=== PATIENT | female | born 1955 | race American Indian/Alaskan Native ===

== ENCOUNTER → 2017-02-28 | Outpatient (CLI) | payer OTHER, MEDICAID ==
[~2017-02-28] MED LIST: ASPI-515 PO; DIAZ5TAB4; DIAZ5TAB4 PO; DULO60CA7 PO; GLYB5TAB3 PO; LINA5TAB PO; LORA10CA; LORA10TA3 PO; LOVASTATIN; METF10002 PO; METH-356 PO; MULT-115 PO; NABU500T PO; OXYC10TA32 PO; OXYC10TA6 PO; OXYC20TA42 PO; QUET100T4 PO; QUET25TA5 PO; [UNRECOGNIZED DRUG - REMARK]
[2017-02-28 15:12] LABS: ASPARTATE AMINO TRANSFERASE 14 U/L (15-37); BLOOD UREA NITROGEN 16 mg/dL (7-18)
[2017-02-28 15:43] LABS: HIV 1&2 ANTIBODY SCREEN Nonreactive (Nonreactive); HIV-1 p24 ANTIGEN Nonreactive (Nonreactive)
== END | disposition home or self-care (01) ==
LOC: STAR 13:49
PROVIDERS: ATTEND Orthopaedic Surgery
DX: T84.84XS Pain due to internal orthopedic prosthetic devices, implants and grafts, sequela (principal); M19.91 Primary osteoarthritis, unspecified site; R79.89 Other specified abnormal findings of blood chemistry; F32.9 Major depressive disorder, single episode, unspecified; E11.9 Type 2 diabetes mellitus without complications; E78.5 Hyperlipidemia, unspecified; I10 Essential (primary) hypertension; Z96.652 Presence of left artificial knee joint; Z79.899 Other long term (current) drug therapy; Z79.82 Long term (current) use of aspirin; Z79.01 Long term (current) use of anticoagulants
CPT/HCPCS: 36415; 80053; 83036; 85025; 85610; 85730; 86703; 87081; 87899; 93005; G0435

== ENCOUNTER 2017-03-04 07:21 | Inpatient (IN) | payer OTHER, MEDICAID ==
[~2017-03-04] VITALS: Ht 162.6 cm; Wt 94.9 kg
[2017-03-04] MEDS ORDERED: VANCOMYCIN PER PHARMACY MC STA (07:32)
[2017-03-04] MEDS ORDERED: MIDAZOLAM 1 MG/ML, 2ML ONE (07:43)
[2017-03-04] MEDS ORDERED: FENTANYL PF 250 MCG/5ML ONE (07:43)
[2017-03-04] MEDS ORDERED: VANCOMYCIN 1,500 MG in SODIUM CHLORIDE 0.9% 250 ML IV ONE (08:00)
[2017-03-04] MEDS ORDERED: BUPIVACAINE/PF-EPI 0.5% 1:200K ONE (08:26)
[2017-03-04] MEDS ORDERED: EPINEPHRINE 1 MG/ML, 1ML ONE (08:48)
[2017-03-04] MEDS ORDERED: TRANEXAMIC ACID 100 MG/ML, 10ML ONE ×4 (08:48)
[2017-03-04] MEDS ORDERED: VANCOMYCIN 1,000 MG ONE ×2 (08:48)
[2017-03-04] MEDS ORDERED: KETOROLAC 60 MG/2 ML ONE (08:48)
[2017-03-04] MEDS ORDERED: ROPIvacaine/PF 0.2%, 20 ML ONE (08:48)
[2017-03-04] MEDS ORDERED: SODIUM CHLORIDE 0.9% 50 ML ONE (08:49)
[2017-03-04] MEDS ORDERED: ACETAMINOPHEN 500 MG TABLET ONE (08:49)
[2017-03-04] MEDS ORDERED: GABAPENTIN 300 MG CAPSULE ONE (08:50)
[2017-03-04] MEDS ORDERED: LACTATED RINGERS 1,000 ML IV SCH (08:51)
[2017-03-04] MEDS ORDERED: ACETAMINOPHEN 500 MG TABLET PO ONE (09:00)
[2017-03-04] MEDS ORDERED: GABAPENTIN 300 MG CAPSULE PO SCH (09:00)
[2017-03-04 09:03] VITALS: BP 120/82
[2017-03-04] MEDS ORDERED: GLYCOPYRROLATE 0.2MG/1ML ONE (09:22)
[2017-03-04] MEDS ORDERED: CEFAZOLIN 1,000 MG ONE (09:22)
[2017-03-04] MEDS ORDERED: PROPOFOL 10 MG/ML, 20ML ONE (09:22)
[2017-03-04] MEDS ORDERED: ONDANSETRON 2MG/ML, 2ML ONE (09:22)
[2017-03-04] MEDS ORDERED: DEXAMETHASONE 4 MG/ML, 1ML ONE (09:22)
[2017-03-04] MEDS ORDERED: ROCURONIUM 10 MG/ML ONE (09:22)
[2017-03-04] MEDS ORDERED: SUCCINYLCHOLINE 20 MG/ML, 10ML ONE (09:22)
[2017-03-04] MEDS ORDERED: ACETAMINOPHEN 325 MG TABLET PO PRN (10:00)
[2017-03-04] MEDS ORDERED: hydrALAzine 20 MG/ML, 1ML IV PRN (10:00)
[2017-03-04] MEDS ORDERED: FENTANYL PF 100 MCG/2ML IV PRN (10:00)
[2017-03-04] MEDS ORDERED: METOCLOPRAMIDE 5 MG/ML, 2ML IV PRN (10:00)
[2017-03-04] MEDS ORDERED: LABETALOL 5MG/ML, 20ML IV PRN (10:00)
[2017-03-04] MEDS ORDERED: OXYcodone 5 MG/5 ML ORAL.SOL UDC PO PRN (10:00)
[2017-03-04] MEDS ORDERED: ONDANSETRON 2MG/ML, 2ML IVPush PRN (10:00)
[2017-03-04] MEDS ORDERED: HYDROmorphone 2 MG/ML, 1ML ONE ×4 (10:42→13:19)
[2017-03-04 11:18] LABS: CELLS COUNTED 237; DILUTION 1; WBC SQUARES COUNTED 9
[2017-03-04] MEDS ORDERED: ACETAMINOPHEN 650 MG/20.3 ML UDC ONE (12:22)
[2017-03-04] MEDS ORDERED: ACETAMINOPHEN 325 MG/10.15 ML UDC ONE (12:22)
[2017-03-04] MEDS ORDERED: OXYcodone 5 MG/5 ML ORAL.SOL UDC ONE (12:23)
[2017-03-04] MEDS: HYDROmorphone 1 MG/ML, 1ML IV PRN ×16 (12:27→23:03)
[2017-03-04] MEDS ORDERED: PROMETHAZINE 25 MG/ML, 1ML IM PRN (12:30)
[2017-03-04] MEDS ORDERED: PROMETHAZINE 12.5 MG SUPP PR PRN (12:30)
[2017-03-04] MEDS ORDERED: ZOLPIDEM 5MG TABLET PO PRN (12:30)
[2017-03-04] MEDS ORDERED: BISACODYL 10 MG SUPP PR PRN (12:30)
[2017-03-04] MEDS ORDERED: DIPHENHYDRAMINE 50 MG CAPSULE PO PRN (12:30)
[2017-03-04] MEDS ORDERED: DEXTROSE 50%, 50ML SYRINGE IVPush PRN (12:30)
[2017-03-04] MEDS ORDERED: SCOPOLAMINE PATCH, 1.5MG PATCH.TD72 TD SCH (12:30)
[2017-03-04] MEDS ORDERED: ONDANSETRON 4 MG TABLET PO PRN (12:30)
[2017-03-04] MEDS ORDERED: DEXTROSE 4 GM TAB.CHEW PO PRN (12:30)
[2017-03-04] MEDS ORDERED: SENNA/DOCUSATE TABLET PO PRN (12:30)
[2017-03-04] MEDS ORDERED: GLUCAGON 1 MG IM PRN (12:30)
[2017-03-04] MEDS ORDERED: OXYcodone IR 5MG TABLET PO PRN (12:30)
[2017-03-04] MEDS ORDERED: ONDANSETRON 2MG/ML, 2ML IV PRN (12:30)
[2017-03-04] MEDS: DIAZEPAM 5 MG TABLET PO PRN ×3 (13:17→21:12)
[2017-03-04] MEDS ORDERED: HYDROmorphone 1 MG/ML, 1ML IV PRN (13:30)
[2017-03-04 14:25] VITALS: BP 105/68
[2017-03-04] MEDS: SODIUM CHLORIDE 0.9% 1,000 ML IV SCH ×2 (14:47→23:03)
[2017-03-04] MEDS: INSULIN REGULAR 100 UNITS/ML, 3ML VIAL SQ-INSULIN SCH ×2 (16:21→21:00)
[2017-03-04] MEDS ORDERED: OXYcodone IR 5MG TABLET ONE (17:01)
[2017-03-04] MEDS ORDERED: METHADONE 10 MG TABLET ONE (17:08)
[2017-03-04] MEDS: METHADONE 10 MG TABLET PO SCH (17:09)
[2017-03-04] MEDS: metFORMIN 500 MG TABLET PO SCH (17:09)
[2017-03-04] MEDS: CEFAZOLIN PMX 1GM/50ML 50 ML IVPB SCH (17:09)
[2017-03-04] MEDS: ACETAMINOPHEN 650 MG/20.3 ML UDC PO PRN ×2 (17:09→21:13)
[2017-03-04] MEDS: OXYcodone IR 5MG TABLET PO PRN ×3 (17:09→21:15)
[2017-03-04 18:39] VITALS: BP 102/69
[2017-03-04] MEDS: DOCUSATE 100 MG CAPSULE PO SCH (20:46)
[2017-03-04] MEDS: QUETIAPINE 100MG TABLET PO SCH (20:46)
[2017-03-04] MEDS: KETOROLAC 30 MG/1 ML IV SCH (20:46)
[2017-03-04] MEDS ORDERED: VANCOMYCIN PMX 1GM/200ML 200 ML IVPB ONE (21:00)
[2017-03-04] MEDS: SODIUM CHLORIDE FLUSH 10ML SYR IVF SCH (21:00)
[2017-03-05 00:50] VITALS: BP 97/59
[2017-03-05] MEDS: ACETAMINOPHEN 650 MG/20.3 ML UDC PO PRN ×2 (01:08→05:18)
[2017-03-05] MEDS: CEFAZOLIN PMX 1GM/50ML 50 ML IVPB SCH (01:08)
[2017-03-05] MEDS: OXYcodone IR 5MG TABLET PO PRN ×6 (01:08→22:52)
[2017-03-05] MEDS: DIAZEPAM 5 MG TABLET PO PRN ×5 (02:34→20:42)
[2017-03-05] MEDS: HYDROmorphone 1 MG/ML, 1ML IV PRN ×6 (02:34→20:42)
[2017-03-05 04:02] VITALS: BP 93/53
[2017-03-05] MEDS: KETOROLAC 30 MG/1 ML IV SCH ×2 (04:44→12:36)
[2017-03-05 05:47] LABS: HEMATOCRIT 33.9 % (34.6-47.8); HEMOGLOBIN 11.4 g/dL (11.7-16.4)
[2017-03-05] MEDS ORDERED: DEXAMETHASONE 4 MG/ML, 1ML IVPush SCH (06:00)
[2017-03-05] MEDS: ASPIRIN 81 MG TABLET EC PO SCH ×2 (06:27→17:20)
[2017-03-05] MEDS: INSULIN REGULAR 100 UNITS/ML, 3ML VIAL SQ-INSULIN SCH ×4 (06:35→20:51)
[2017-03-05 07:30] VITALS: BP 93/58
[2017-03-05] MEDS: SODIUM CHLORIDE 0.9% 1,000 ML IV SCH ×2 (08:15→18:15)
[2017-03-05] MEDS: QUETIAPINE 100MG TABLET PO SCH ×2 (08:50→20:43)
[2017-03-05] MEDS: metFORMIN 500 MG TABLET PO SCH ×2 (08:50→17:20)
[2017-03-05] MEDS: DOCUSATE 100 MG CAPSULE PO SCH ×2 (08:50→20:43)
[2017-03-05] MEDS: DULOXETINE 30 MG CAPSULE.DR PO SCH (08:50)
[2017-03-05] MEDS: LORATADINE 10 MG TABLET PO SCH (08:50)
[2017-03-05] MEDS: METHADONE 10 MG TABLET PO SCH ×2 (08:50→20:42)
[2017-03-05] MEDS: SODIUM CHLORIDE FLUSH 10ML SYR IVF SCH ×2 (09:00→20:42)
[2017-03-05] MEDS ORDERED: KETOROLAC 30 MG/1 ML IV SCH (12:30)
[2017-03-05 14:50] VITALS: BP 112/70
[2017-03-05 18:43] VITALS: BP 120/70
[2017-03-06 01:25] VITALS: BP 116/68
[2017-03-06] MEDS: HYDROmorphone 1 MG/ML, 1ML IV PRN ×2 (01:29→06:37)
[2017-03-06] MEDS: DIAZEPAM 5 MG TABLET PO PRN ×2 (01:29→06:36)
[2017-03-06] MEDS: OXYcodone IR 5MG TABLET PO PRN ×3 (03:46→12:11)
[2017-03-06] MEDS: SODIUM CHLORIDE 0.9% 1,000 ML IV SCH (04:14)
[2017-03-06 05:56] LABS: HEMATOCRIT 31.3 % (34.6-47.8); HEMOGLOBIN 10.5 g/dL (11.7-16.4)
[2017-03-06] MEDS: ASPIRIN 81 MG TABLET EC PO SCH (06:36)
[2017-03-06] MEDS: INSULIN REGULAR 100 UNITS/ML, 3ML VIAL SQ-INSULIN SCH ×2 (06:42→11:00)
[2017-03-06 07:32] VITALS: BP 112/67
[2017-03-06] MEDS: METHADONE 10 MG TABLET PO SCH (08:11)
[2017-03-06] MEDS: DOCUSATE 100 MG CAPSULE PO SCH (08:12)
[2017-03-06] MEDS: DULOXETINE 30 MG CAPSULE.DR PO SCH (08:12)
[2017-03-06] MEDS: metFORMIN 500 MG TABLET PO SCH (08:12)
[2017-03-06] MEDS: LORATADINE 10 MG TABLET PO SCH (08:13)
[2017-03-06] MEDS: SODIUM CHLORIDE FLUSH 10ML SYR IVF SCH (08:13)
[2017-03-06] MEDS: QUETIAPINE 100MG TABLET PO SCH (08:13)
[2017-03-06 10:16] VITALS: BP 99/63
[2017-03-06] MEDS ORDERED: ASPI-621 PO (13:14)
[2017-03-06] MEDS ORDERED: OXYC10TA6 PO (13:18)
[2017-03-06] MEDS ORDERED: DIAZ2TAB PO (13:19)
[2017-03-06] MEDS ORDERED: ONDA4TAB10 PO (13:20)
[2017-03-06] MEDS ORDERED: TRAM50TA2 PO (13:21)
[2017-03-06] MEDS ORDERED: CELE200C PO (13:22)
== END 2017-03-06 13:50 | disposition home or self-care (01) | DRG 468 ==
LOC: ORIP 07:21 → 4NOR 14:25 → DCLOUNGE 03-06 13:16
PROVIDERS: ADMIT Orthopaedic Surgery; ATTEND Orthopaedic Surgery
PROC: 0SRD0J9 Replacement of Left Knee Joint with Synthetic Substitute, Cemented, Open Approach (ICD-10-PCS; 2017-03-04)
PROC: 0SPD0JZ Removal of Synthetic Substitute from Left Knee Joint, Open Approach (ICD-10-PCS; principal; 2017-03-04 09:30)
DX: T84.093A Other mechanical complication of internal left knee prosthesis, initial encounter (principal); M25.252 Flail joint, left hip; Y79.2 Prosthetic and other implants, materials and accessory orthopedic devices associated with adverse incidents; Z88.6 Allergy status to analgesic agent; Z88.5 Allergy status to narcotic agent; Z88.8 Allergy status to other drugs, medicaments and biological substances
CPT/HCPCS: 36415; 82962; 85014; 85018; 87070; 87075; 87102; 87205; 89051; C1713; J0171; J0690; J1100; J1170; J1885; J2250; J2405; J2704; J2795; J3010; J3370; J3490; C1776; J0330; J7030; J7050; J7120

== ENCOUNTER 2020-11-10 18:42 | Emergency (ER) | payer MEDICAID, OTHER ==
[~2020-11-10] VITALS: Ht 162.6 cm; Wt 84.1 kg
[~2020-11-10 18:42] MED LIST changes: -ASPI-515 PO; +ASPI-963 PO; +ASPI81TA45 PO; +CELE200C PO; +DIAZ2TAB PO; +LORA-247 PO; -LORA10TA3 PO; -METH-356 PO; +METH10TA2 PO; -NABU500T PO; +NABU500T7 PO; +ONDA4TAB10 PO; -OXYC10TA32 PO; +OXYC10TA47 PO; +TRAM50TA2 PO
[2020-11-10] MEDS ORDERED: MECLIZINE CHEWABLE 25 MG TAB ONE (20:15)
[2020-11-10 20:26] VITALS: BP 139/79
[2020-11-10] MEDS ORDERED: MECLIZINE CHEWABLE 25 MG TAB PO ONE (20:30)
== END 2020-11-10 21:43 | disposition home or self-care (01) ==
LOC: ED 20:00
DX: H81.391 Other peripheral vertigo, right ear (principal); H92.03 Otalgia, bilateral; I10 Essential (primary) hypertension; M19.90 Unspecified osteoarthritis, unspecified site
CPT/HCPCS: 82962; 93005; 99283

== ENCOUNTER 2021-04-15 11:19 | Emergency (ER) | payer MEDICAID ==
[~2021-04-15] VITALS: Ht 162.6 cm; Wt 77.3 kg
[~2021-04-15 11:19] MED LIST changes: +NABU500T11 PO; -NABU500T7 PO
--- NOTE | 2021-04-15 11:59 | NUR ---
field recorder note: Pt to room from [facility].
--- NOTE | 2021-04-15 12:07 | NUR ---
PT BIB EMS FOR N/V, DIZZINESS AND FEELING FAINT. PT STATES THE SYMPTOMS STARTED AFTER RECV'ING MODERNA VACCINE. PT DENIES FALLS OR LOC. PIV BY EMS LATCHER LFA 20 GA. 12.5 MH PHENERGAN AND 250 ML NS LATCHER
[2021-04-15] MEDS ORDERED: MECLIZINE CHEWABLE 25 MG TAB ONE (12:23)
[2021-04-15] MEDS ORDERED: PLEASE ENTER HEIGHT AND WEIGHT MC SCH (12:30)
[2021-04-15] MEDS ORDERED: MECLIZINE CHEWABLE 25 MG TAB PO ONE (12:30)
[2021-04-15 13:14] LABS: BASOPHILS % (AUTO) 1 % (0-1); EOSINOPHILS % (AUTO) 0 % (1-7); LYMPHOCYTES % (AUTO) 18 % (22-44); MEAN CORPUSCULAR HEMOGLOBIN 29.3 pg (27.0-34.8); MEAN CORPUSCULAR HGB CONC 34.3 g/dL (32.4-35.8); MEAN PLATELET VOLUME 8.1 fL (7.4-10.4); MONOCYTES % (AUTO) 4 % (2-9); NEUTROPHILS % (AUTO) 77 % (42-75); PLATELET COUNT 325 x10^3/uL (130-400); RED BLOOD COUNT 5.43 x10^6/uL (3.82-5.3); RED CELL DISTRIBUTION WIDTH 12.9 % (9.6-15.2)
--- NOTE | 2021-04-15 13:21 | NUR ---
PT REPORTS IMPROVMENT IN DIZZINESS AFTER MECLIZINE ADMIN.
[2021-04-15 13:22] LABS: ALBUMIN 3.4 g/dL (3.4-5.0); ANION GAP 8 mmol/L (5-15); CALCIUM 8.6 mg/dL (8.5-10.1); CHLORIDE 107 mmol/L (98-107)
--- NOTE | 2021-04-15 14:14 | NUR ---
TASK RN: PT UPRIGHT ON GURNEY AWAKE & COMFORTABLE, WATCHING TV, RESPONDS APPROP TO STAFF, NAD, NO NEEDS AT THIS TIME, CALL LIGHT WITHIN REACH.
--- NOTE | 2021-04-15 15:14 | NUR ---
PT REC'VD DISCHARGE INSTRUCTIONS AND EDUCATION. PT HAD NO FURTHER QUESTIONS. PT AMBULATED TO DC AREA, SPOUSE BEDSIDE, STEADY GAIT.
[2021-04-15 15:16] VITALS: BP 133/70
== END 2021-04-15 15:31 | disposition home or self-care (01) ==
LOC: ED 13:26
DX: R42 Dizziness and giddiness (principal); R11.2 Nausea with vomiting, unspecified; E11.9 Type 2 diabetes mellitus without complications; M19.90 Unspecified osteoarthritis, unspecified site; F17.200 Nicotine dependence, unspecified, uncomplicated
CPT/HCPCS: 36415; 70450; 80048; 82040; 85025; 93005; 99285